=== PATIENT | male | born 1995 | race Hispanic/Latino ===

== ENCOUNTER 2017-06-12 15:01 | Emergency (ER) | payer OTHER ==
[~2017-06-12] VITALS: Ht 180.3 cm; Wt 81.6 kg
--- OUTSIDE RECORDS SUMMARY | 2017-06-12 15:03 | XMS REPORT | Clinical Summary ---
Author Author [place] [employer] [facility] [place] [employer] Address Unknown Phone Unavailable Care Team Providers Care Manager Pulmonary Name Role Phone Asked, Pcp PCP Unavailable Allergies Active Allergy Reactions Severity Noted Date Comments Codeine Itching 08/31/2016 Current Medications Prescription Sig. Disp. Refills Start End Date Status Date naloxone (Narcan) 1 mg/mL Infuse 2 mg into a venous Active injection catheter once. Active Problems Problem Noted Date Opiate abuse, episodic 08/31/2016 Encounters Date Type Specialty Care Team Description 08/31/2016 Emergency Intensive Care Musa Dc, Opiate abuse, episodic DO (Primary Dx); Melissa David MD Opiate overdose, Sylvie Monte MD undetermined intent, initial encounter; Benzodiazepine (tranquilizer) overdose, undetermined intent, initial encounter; Somnolence after 06/11/2016 Social History Tobacco Use Types Packs/Day Years Used Date Never Smoker Alcohol Use Drinks/Week oz/Week Comments No Sex Assigned at Date Recorded Not on file Last Filed Vital Signs Vital Sign Reading Time Taken Blood Pressure 130/83 08/31/2016 8:00 AM CDT Pulse 78 08/31/2016 9:00 AM CDT Temperature 36.7 C (98 F) 08/31/2016 8:00 AM CDT Respiratory Rate 36 08/31/2016 9:00 AM CDT Oxygen Saturation 99% 08/31/2016 9:00 AM CDT Inhaled Oxygen - - Concentration Weight 102 kg (225 lb 1.6 oz) 08/31/2016 3:33 AM CDT Height 185.4 cm (6' 1") 08/31/2016 3:33 AM CDT Body Mass Index 29.7 08/31/2016 3:33 AM CDT Plan of Treatment Health Maintenance Due Date Last Done Comments INFLUENZA VACCINE 11/10/2016 Results * Estimated GFR (08/31/2016 6:04 AM) Only the most recent of 2 results within the time period is included. Component Value Ref Range GFR Non Af Amer >90 mL/min/1.73 m2 GFR Af Amer >90 mL/min/1.73 m2 Comment: Chronic kidney disease: <60 mL/min/1.73m2 Kidney failure: <15 mL/min/1.73m2 The estimated GFR is calculated from the IDMS-traceable Modification of Diet in Renal Disease Equation. The accuracy of the calculation is poor when the creatinine is normal. Calculated values >90 mL/min/1.73m2 are not reported. This equation has not been validated in children (<18 years), women, the elderly (>70 years), or ethnic groups other than Caucasians and Americans. Specimen Performing Laboratory Plasma specimen [facility] [place] [facility] PATHOLOGY AND GENOMIC MEDICINE [address] [place] [address] * CBC with platelet and differential (08/31/2016 6:04 AM) Only the most recent of 2 results within the time period is included. Component Value Ref Range WBC 6.6 4.2 - 11.0 k/uL RBC 4.61 4.04 - 5.86 m/uL HGB 14.1 13.0 - 17.3 g/dL HCT 42.5 34.0 - 45.0 % MCV 92.2 80.0 - 98.0 fL MCH 30.6 27.0 - 34.0 pg MCHC 33.2 31.5 - 36.5 g/dL RDW - SD 46.5 37.0 - 51.0 fL MPV 10.2 7.4 - 10.4 fL Platelet count 243 150 - 400 k/uL Nucleated RBC 0.00 /100 WBC Neutrophils 70.8 (H) 36.0 - 66.0 % Lymphocytes 23.4 (L) 24.0 - 44.0 % Monocytes 4.4 0.0 - 6.0 % Eosinophils 0.9 0.0 - 6.0 % Basophils 0.3 0.0 - 1.2 % Immature granulocytes 0.2 0.0 - 1.0 % Specimen Performing Laboratory Blood [facility] [place] [facility] OF PATHOLOGY AND GENOMIC MEDICINE [address] [place] [address] * Phosphorus level (08/31/2016 6:04 AM) Component Value Ref Range Phosphorus 3.3 2.5 - 4.5 mg/dL Specimen Performing Laboratory Plasma specimen [facility] [place] [facility] OF PATHOLOGY AND GENOMIC MEDICINE [address] [place] [address] * Magnesium level (08/31/2016 6:04 AM) Component Value Ref Range Magnesium 2.30 1.60 - 2.40 mg/dL Specimen Performing Laboratory Plasma specimen [facility] [place] [facility] OF PATHOLOGY AND GENOMIC MEDICINE [address] [place] [address] * Lactic acid level (08/31/2016 6:04 AM) Component Value Ref Range Lactic acid 0.6 0.5 - 2.2 mmol/L Specimen Performing Laboratory Blood [facility] [place] [facility] OF PATHOLOGY AND GENOMIC MEDICINE [address] [place] [address] * Creatine kinase, total (CPK) (08/31/2016 6:04 AM) Component Value Ref Range Creatine kinase 93 61 - 224 U/L Specimen Performing Laboratory Plasma specimen [facility] [place] [facility] OF PATHOLOGY AND GENOMIC MEDICINE [address] [place] [address] * Comprehensive metabolic panel (08/31/2016 6:04 AM) Only the most recent of 2 results within the time period is included. Component Value Ref Range Sodium 141 135 - 150 mEq/L Potassium 4.0 3.5 - 5.0 mEq/L Chloride 105 100 - 109 mEq/L CO2 29 24 - 32 mmol/L Anion gap 7 7 - 15 mEq/L Comment: Starting from July , anion gap calculation no longer incorporates potassium. Please note the change. BUN 15 7 - 18 mg/dL Creatinine 0.8 0.8 - 1.5 mg/dL Glucose 102 (H) 65 - 100 mg/dL Calcium 8.9 8.6 - 10.7 mg/dL Protein 6.8 6.3 - 8.2 g/dL Albumin 4.0 3.2 - 5.0 g/dL A/G ratio 1.4 0.7 - 3.8 Alkaline phosphatase 93 30 - 120 U/L AST 12 (L) 15 - 37 U/L ALT 27 (L) 30 - 65 U/L Total bilirubin 0.2 0.2 - 1.2 mg/dL Specimen Performing Laboratory Plasma specimen [facility] [place] [facility] OF PATHOLOGY AND GENOMIC MEDICINE [address] [place] [address] * ECG ED Preliminary Interpretation - NOT AN ORDER (08/31/2016 2:38 AM) Narrative Musa Dc DO 08/31/20162:38 AM ECG ED Preliminary Interpretation - Not an Order Performed by: MUSA DC Authorized by: MSUA DC Interpretation: Interpretation: abnormal Rate: ECG rate:111 ECG rate assessment: tachycardic Rhythm: Rhythm: sinus tachycardia Ectopy: Ectopy: none QRS: QRS axis:Normal QRS intervals:Normal Conduction: Conduction: normal ST segments: ST segments:Normal T waves: T waves: normal * CT Head Wo Contrast (08/31/2016 2:13 AM) Specimen Performing Laboratory [facility] [address] [place] [address] Narrative EXAMINATION: CT HEAD WO CONTRAST CLINICAL HISTORY: amsoverdose COMPARISON:CT 12/15/2009. TECHNIQUE: Noncontrast enhanced images of the brain were obtained from the skull base to the vertex. Both soft tissue and bone reconstruction algorithms were performed. CT scans are performed using radiation dose reduction techniques (iterative reconstruction and/or automated exposure control). Technical factors are evaluated and adjusted to ensure appropriate moderation of exposure. Automated dose management technology is applied to adjust radiation exposure while achieving a diagnostic quality image. FINDINGS: Stable foci of subcortical hypoattenuation in the right frontal lobe, likely representing chronic insults. No new areas of hypoattenuation are seen.. No evidence of acute intra or extra-axial hemorrhage, mass, mass effect or acute territorial infarction. There is no acute hydrocephalus. Basal cisterns are patent. No acute soft tissue hematoma or laceration. No skull fractures or aggressive bony lesions. Fluid within the nasopharynx. Paranasal sinuses and mastoid air cells are clear. Orbits are normal. IMPRESSION: No acute intracranial abnormality identified. [facility]-[id number] Procedure Note Interface, Radiology Results Incoming - 08/31/2016 2:33 AM CDT EXAMINATION: CT HEAD WO CONTRAST CLINICAL HISTORY: ams overdose COMPARISON: CT 12/15/2009. TECHNIQUE: Noncontrast enhanced images of the brain were obtained from the skull base to the vertex. Both soft tissue and bone reconstruction algorithms were performed. CT scans are performed using radiation dose reduction techniques (iterative reconstruction and/or automated exposure control). Technical factors are evaluated and adjusted to ensure appropriate moderation of exposure. Automated dose management technology is applied to adjust radiation exposure while achieving a diagnostic quality image. FINDINGS: Stable foci of subcortical hypoattenuation in the right frontal lobe, likely representing chronic insults. No new areas of hypoattenuation are seen.. No evidence of acute intra or extra-axial hemorrhage, mass, mass effect or acute territorial infarction. There is no acute hydrocephalus. Basal cisterns are patent. No acute soft tissue hematoma or laceration. No skull fractures or aggressive bony lesions. Fluid within the nasopharynx. Paranasal sinuses and mastoid air cells are clear. Orbits are normal. IMPRESSION: No acute intracranial abnormality identified. [facility]-[id number] * ECG 12 lead (08/31/2016 1:06 AM) Component Value Ref Range Ventricular rate 111 Atrial rate 111 DE interval 138 QRSD interval 90 QT interval 332 QTC interval 451 P axis 1 55 QRS axis 1 18 T wave axis 33 EKG impression Sinus tachycardia-Possible Inferior infarct , age undetermined-Abnormal ECG-No previous ECGs available- Specimen Performing Laboratory [facility] [address] [address] [place] [address] * Partial thromboplastin time, activated (08/31/2016 1:05 AM) Component Value Ref Range PTT 33.2 23.0 - 36.0 sec Comment: PTT therapeutic range for unfractionated heparin is 61.0-112.0 seconds which corresponds to Anti-Xa 0.3-0.7 U/ml. Note: Change in Panic Value The PTT Panic Value is changing from 110 sec. to 100 sec. due to new instrumentation and reagents. Correlation studies have been performed to validate this result. Specimen Performing Laboratory Blood [facility] [place] [facility] OF PATHOLOGY AND GENOMIC MEDICINE [address] [place] [address] * Alcohol level, blood (08/31/2016 1:05 AM) Component Value Ref Range Alcohol None Detected mg/dL Comment: Normal None Detected Legal Intoxication in [place] 80 mg/dL (0.08%) Toxic Concentration 200 mg/dL (0.2%) Potentially Fatal 350-500 mg/dL (0.35%-0.5%) Alcohol percent None Detected % Specimen Performing Laboratory Blood [facility] [place] [facility] OF PATHOLOGY AND GENOMIC MEDICINE [address] [place] [address] * Acetaminophen level (08/31/2016 1:05 AM) Component Value Ref Range Acetaminophen level 17.8 10.0 - 20.0 ug/mL Comment: Therapeutic 10-30 ug/mL Possible Toxicity 150-200 ug/mL Probable Toxicity >200 ug/mL Specimen Performing Laboratory Blood [facility] [place] [facility] OF PATHOLOGY AND GENOMIC MEDICINE [address] [place] [address] * Salicylate level (08/31/2016 1:05 AM) Component Value Ref Range Salicylate <1.7 mg/dL Comment: Therapeutic Range: 5 - 30 mg/dL Specimen Performing Laboratory Blood [facility] [place] [place] [facility] PATHOLOGY AND GENOMIC MEDICINE [address] [place] [address] * Urine culture (08/31/2016 12:57 AM) Component Value Ref Range Urine culture SEE COMMENTComment: Bacteriuria screen negative. Specimen Performing Laboratory [facility] [place] [facility] OF PATHOLOGY AND GENOMIC MEDICINE [address] [place] [address] * Urinalysis screen and microscopy, with reflex to culture (08/31/2016 12:52 AM) Component Value Ref Range Specimen site Catheterized Color, UA Yellow Appearance, UA Clear Specific gravity, UA 1.036 (H) 1.001 - 1.035 pH, UA 5.0 5.0 - 8.5 Protein, UA Negative Negative Glucose, UA Negative Negative Ketones, UA Negative Negative Bilirubin, UA Negative Negative Blood, UA Negative Negative Nitrite, UA Negative Negative Urobilinogen, UA Negative <2.0 Leukocyte esterase, UA Negative Negative WBC, UA <1 0 - 1 /HPF RBC, UA 1 0 - 1 /HPF Bacteria, UA None seen None seen Yeast, UA None seen Yeast with pseudohyphae, None seen UA Specimen Performing Laboratory Urine [facility] [place] [place] [facility] OF PATHOLOGY AND GENOMIC MEDICINE [address] [place] [address] * Urine drugs of abuse screen (08/31/2016 12:52 AM) Component Value Ref Range Amphetamine screen, urine NEG Barbiturate screen, urine NEG Benzodiazepine screen, POS urine Cocaine screen, urine POS Methadone screen, urine NEG Opiates screen, urine POS Phencyclidine screen, NEG urine Cannabinoid screen, urine POS Comment: Drug screen minimum concentration of detectability Amphetamines 1000 ng/mL Methamphetamines 1000 ng/mL Barbiturates 300 ng/mL Benzodiazepines 300 ng/mL Cocaine 300 ng/mL Methadone 3 00 ng/mL Opiates 300 ng/mL Phencyclidine 25 ng/mL Cannabinoids 50 ng/mL Tricyclics 1000 ng/mL Negative test results indicates presumptive evidence of lack of clinically significant drug concentration in this urine specimen. Positive test results are presumptive evidence of clinically significant drug concentration in this urine specimen. Testing performed for medical purposes only. Specimen Performing Laboratory Urine [facility] [place] [place] [facility] OF PATHOLOGY AND GENOMIC MEDICINE [address] [place] [address] after 06/11/2016 Insurance Payer Benefit Subscriber ID Type Phone Address Plan / Group AETNA AETNA xxxxxxxxxx HMO HMO,POS,EP O, MC/EC
[2017-06-12 16:44] VITALS: BP 145/84
== END 2017-06-12 15:45 | disposition left against medical advice (07) ==
LOC: FSED 15:01
DX: R41.82 Altered mental status, unspecified (principal); S40.812A Abrasion of left upper arm, initial encounter; S40.811A Abrasion of right upper arm, initial encounter; F14.90 Cocaine use, unspecified, uncomplicated; F11.90 Opioid use, unspecified, uncomplicated; F12.90 Cannabis use, unspecified, uncomplicated; V43.02XA Car driver injured in collision with other type car in nontraffic accident, initial encounter; Y92.488 Other paved roadways as the place of occurrence of the external cause
CPT/HCPCS: 80307; 99282